=== PATIENT | female | born 1985 | race Caucasian/White ===

== ENCOUNTER 2017-02-26 09:10 | Emergency (ER) | payer SELFPAY ==
[2017-02-26 09:15] VITALS: BP 141/100
[2017-02-26] MEDS ORDERED: METH4TAB2 PO (09:55)
[2017-02-26] MEDS ORDERED: HYDR25TA PO (09:55)
--- NOTE | 2017-02-26 09:55 | PHYS DOC ---
Past History Past Medical History: Other Past Surgical History: No Surgical History Smoking: Less than 1pk/day Alcohol Use: None Drug Use: None Adult General Chief Complaint Chief Complaint: SKIN PROBLEM HPI HPI Patient is a 32 year old female who presents with complaint of itching and rash formation to the right hand and forearm. Patient states that she noticed this starting 2 days ago. Patient states that she is having burning discomfort and itching to the right hand. Patient denies previous history of similar symptoms. 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 Patient states she's been there over one month and had not had any symptoms present until the last 2 days. Patient denies any known exposure to poison nathan or other outdoor plants. The patient states that she is starting to notice rash formation on her left hand. Patient states she has been using anti-itch cream to the affected area with no relief. Patient denies any fevers, drainage, or any other significant symptoms. Review of Systems Review of Systems Constitutional: Denies fever or chills [] Eyes: Denies change in visual acuity, redness, or eye pain [] HENT: Denies nasal congestion or sore throat [] Respiratory: Denies cough or shortness of breath [] Cardiovascular: Denies chest pain or edema [] GI: Denies abdominal pain, nausea, vomiting, bloody stools or diarrhea [] : Denies dysuria or hematuria [] Musculoskeletal: Denies back pain or joint pain [] Integument: Skin rash to bilateral hands and right forearm [] Neurologic: Denies headache, focal weakness or sensory changes [] Allergies Allergies No known drug allergies Physical Exam Physical Exam Constitutional: Well developed, well nourished, no acute distress, non-toxic appearance. [] HENT: Normocephalic, atraumatic, bilateral external ears normal, oropharynx moist, no oral exudates, nose normal. [] Eyes: PERRLA, EOMI, conjunctiva normal, no discharge. [] Neck: Normal range of motion, no tenderness, supple, no stridor. [] Cardiovascular:Heart rate regular rhythm, no murmur [] Lungs & Thorax: Bilateral breath sounds clear to auscultation [] Abdomen: Bowel sounds normal, soft, no tenderness, no masses, no pulsatile masses. [] Skin: Warm, dry, erythematous papular rash present on dorsal aspect of both hands and a circumferential pattern on the right forearm, no active drainage, no skin tunneling. [] Back: No tenderness, no CVA tenderness. [] Extremities: No tenderness, no cyanosis, no clubbing, ROM intact, no edema. [] Neurologic: Alert and oriented X 3, normal motor function, normal sensory function, no focal deficits noted. [] Current Patient Data Vital Signs Vital signs reviewed and are stable Lab Results Not performed EKG EKG Not performed [] Radiology/Procedures Radiology/Procedures Not performed [] Course & Med Decision Making Course & Med Decision Making Pertinent Labs and Imaging studies reviewed. (See chart for details) Patient's rash appears consistent with contact dermatitis. The patient started on oral Decadron in the emergency department. The patient will continue on treatment with Medrol Dosepak and hydroxyzine for outpatient care. Advise follow -up in 3-5 days with primary doctor for reevaluation and return to emergency department for any worsening symptoms. Patient voiced understanding and in agreement with treatment plan. Dragon Disclaimer Dragon Disclaimer This chart was dictated in whole or in part using Voice Recognition software in a busy, high-work load, and often noisy Emergency Department environment. It may contain unintended and wholly unrecognized errors or omissions. Departure Departure: Impression: Primary Impression: Contact dermatitis Disposition: 01 HOME, SELF-CARE Condition: STABLE Referrals: DEXTER ACOSTA MD (PCP) Patient Instructions: Contact Dermatitis Additional Instructions: Follow-up with your primary doctor in 3-5 days if symptoms are not improving. Return to emergency department for any worsening symptoms. Scripts Hydroxyzine Hcl (HYDROXYZINE HCL) 25 Mg Tablet 1 TAB PO QID Y for ITCHING, #30 TAB Prov: KEREN CALLE MD 02/26/17 Methylprednisolone (MEDROL) 4 Mg Tab.ds.pk 1 PKG PO UD, #1 PKG Prov: KEREN CALLE MD 02/26/17 Problem Qualifiers Primary Impression: Contact dermatitis Contact dermatitis type: allergic Contact dermatitis trigger: unspecified trigger Qualified Codes: L23.9 - Allergic contact dermatitis, unspecified cause KEREN CALLE MD Feb 26, 2017 09:55
[2017-02-26] MEDS ORDERED: DEXAMETHASONE 4 MG TABLET PO ONE (10:30)
[2017-02-26] MEDS ORDERED: hydrOXYzine HCL 25 MG TABLET PO ONE (10:30)
== END 2017-02-26 10:20 | disposition home or self-care (01) ==
LOC: ER 09:10
DX: L25.9 Unspecified contact dermatitis, unspecified cause (principal); F17.200 Nicotine dependence, unspecified, uncomplicated
CPT/HCPCS: 99283; J8540

== ENCOUNTER 2018-12-24 00:08 | Emergency (ER) | payer OTHER ==
[~2018-12-24] VITALS: Ht 170.2 cm; Wt 118.5 kg
[~2018-12-24 00:08] MED LIST: HYDR25TA PO; METH4TAB2 PO
[2018-12-24 00:10] VITALS: BP 127/81
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
--- NOTE | 2018-12-24 11:25 | RAD ---
Three-view right wrist radiographs 12/24/2018 CLINICAL HISTORY: Injury to the right wrist. PA, lateral and oblique digital radiographs of the right wrist were obtained. No fracture or dislocation of the right wrist is seen. No radiopaque foreign body is noted. IMPRESSION: No fracture or dislocation of the right wrist is seen. Electronically signed by: Samson Conklin MD (12/24/2018 11:22 AM) [id number]
== END 2018-12-24 01:05 | disposition home or self-care (01) ==
LOC: ER 00:08
DX: T74.11XA Adult physical abuse, confirmed, initial encounter (principal); M25.531 Pain in right wrist; F17.200 Nicotine dependence, unspecified, uncomplicated
CPT/HCPCS: 29125; 73110; 81025; 99284